=== PATIENT | male | born 1980 | race Caucasian/White ===

== ENCOUNTER 2018-06-01 20:51 | Emergency (ER) | payer OTHER ==
[~2018-06-01] VITALS: Ht 160 cm; Wt 61.2 kg
[2018-06-01] MEDS ORDERED: ASTAGRAF XL1 MG PO (21:00)
[2018-06-01] MEDS ORDERED: CARVEDILOL12.5 MG PO (21:00)
[2018-06-01] MEDS ORDERED: MYFORTIC180 MG PO (21:00)
[2018-06-01] MEDS ORDERED: MONUROL3 GM PER TUBE ×2 (21:01→21:27)
[2018-06-01 21:19] LABS: URINE BILIRUBIN NEGATIVE (Negative); URINE BLOOD 2+ (Negative); URINE CLARITY SL CLOUDY; URINE COLOR STRAW; URINE GLUCOSE-RANDOM NEGATIVE (Negative); URINE KETONES NEGATIVE (Negative); URINE PROTEIN 2+ (Negative); URINE UROBILINOGEN 0.2 E.U./dl (0.2-1.0)
[2018-06-01 21:20] LABS: URINE LEUKOCYTES-REFLEX 3+ (Negative); URINE NITRITE-REFLEX POSITIVE (Negative)
[2018-06-01 21:31] LABS: BACTERIA-REFLEX >30 Many /HPF (None Seen); CASTS None Seen /LPF (None Seen); CRYSTALS None Seen /LPF (None Seen); MUCUS 0-3 Light strn/LPF (None Seen); SQUAMOUS 0-3 Few /LPF (0-3); URINE WBC-REFLEX >25 Many /HPF (0-5); WBC CLUMPS Moderate (None Seen)
[2018-06-01 21:50] VITALS: BP 152/100
== END 2018-06-01 21:50 | disposition home or self-care (01) ==
LOC: M.ERS 20:51
PROVIDERS: Nurse Practitioner Family
DX: N39.0 Urinary tract infection, site not specified (principal); Z88.1 Allergy status to other antibiotic agents; Z88.2 Allergy status to sulfonamides

== ENCOUNTER 2019-01-08 21:56 | Emergency (ER) | payer OTHER ==
[~2019-01-08] VITALS: Ht 160 cm; Wt 61.2 kg
[~2019-01-08 21:56] MED LIST: ASTAGRAF XL1 MG PO; CARVEDILOL12.5 MG PO; MONUROL3 GM PER TUBE; MYFORTIC180 MG PO
[2019-01-08] MEDS ORDERED: METOLAZONE 2.52.5 M1 PO (22:12)
[2019-01-08] MEDS ORDERED: VITAMIN D31000 UNIT PO (22:13)
[2019-01-08 22:28] LABS: URINE BILIRUBIN NEGATIVE (Negative); URINE BLOOD 1+ (Negative); URINE CLARITY SL CLOUDY; URINE COLOR YELLOW; URINE GLUCOSE-RANDOM NEGATIVE (Negative); URINE KETONES NEGATIVE (Negative); URINE PROTEIN 1+ (Negative); URINE SPECIFIC GRAVITY 1.015 (1.005-1.030); URINE UROBILINOGEN 0.2 E.U./dl (0.2-1.0)
[2019-01-08 22:30] LABS: URINE LEUKOCYTES-REFLEX 3+ (Negative); URINE NITRITE-REFLEX POSITIVE (Negative)
[2019-01-08 22:36] LABS: BACTERIA-REFLEX >30 Many /HPF (None Seen); MUCUS None Seen strn/LPF (None Seen); SQUAMOUS 0-3 Few /LPF (0-3); URINE WBC-REFLEX >25 Many /HPF (0-5)
[2019-01-08 22:37] LABS: CASTS None Seen /LPF (None Seen); CRYSTALS None Seen /LPF (None Seen); URINE RBC 3-10 Few /HPF (0-2); WBC CLUMPS Few (None Seen)
[2019-01-08 22:48] LABS: INFLUENZA A ANTIGEN Negative (Negative); INFLUENZA B ANTIGEN Negative (Negative)
[2019-01-08] MEDS ORDERED: LEVAQUIN 500 M500 MG PO (22:56)
[2019-01-08 23:22] VITALS: BP 143/87
== END 2019-01-08 23:23 | disposition home or self-care (01) ==
LOC: M.ERS 21:56
PROVIDERS: Emergency Medicine
DX: N39.0 Urinary tract infection, site not specified (principal); J06.9 Acute upper respiratory infection, unspecified; Z88.1 Allergy status to other antibiotic agents; Z88.2 Allergy status to sulfonamides; Z94.0 Kidney transplant status

== ENCOUNTER 2019-09-29 17:31 | Emergency (ER) | payer OTHER ==
[~2019-09-29] VITALS: Ht 160 cm; Wt 61.2 kg
[~2019-09-29 17:31] MED LIST changes: +LEVAQUIN 500 M500 MG PO; +METOLAZONE 2.52.5 M1 PO; +VITAMIN D31000 UNIT PO
[2019-09-29] MEDS ORDERED: NATURE MADE (17:46)
[2019-09-29 18:04] LABS: URINE BILIRUBIN NEGATIVE (Negative); URINE BLOOD 2+ (Negative); URINE CLARITY CLOUDY; URINE COLOR YELLOW; URINE GLUCOSE-RANDOM NEGATIVE (Negative); URINE KETONES TRACE (Negative); URINE LEUKOCYTES-REFLEX 3+ (Negative); URINE NITRITE-REFLEX POSITIVE (Negative); URINE PROTEIN 2+ (Negative); URINE SPECIFIC GRAVITY 1.025 (1.005-1.030); URINE UROBILINOGEN 0.2 E.U./dl (0.2-1.0)
[2019-09-29 18:12] LABS: SQUAMOUS 0-3 Few /LPF (0-3); URINE WBC-REFLEX >25 Many /HPF (0-5); WBC CLUMPS Moderate (None Seen)
[2019-09-29 18:13] LABS: BACTERIA-REFLEX >30 Many /HPF (None Seen); URINE RBC 3-10 Few /HPF (0-2)
[2019-09-29 18:14] LABS: CASTS None Seen /LPF (None Seen); CRYSTALS None Seen /LPF (None Seen); MUCUS None Seen strn/LPF (None Seen)
[2019-09-29] MEDS ORDERED: LEVAQUIN 500 M500 M2 PO (18:30)
[2019-09-29 18:44] VITALS: BP 169/88
== END 2019-09-29 18:44 | disposition home or self-care (01) ==
LOC: M.ERS 17:31
PROVIDERS: Family Medicine
DX: N39.0 Urinary tract infection, site not specified (principal); J02.9 Acute pharyngitis, unspecified; Z88.1 Allergy status to other antibiotic agents; Z88.2 Allergy status to sulfonamides

== ENCOUNTER 2021-03-11 07:13 | Emergency (ER) | payer OTHER ==
[~2021-03-11] VITALS: Ht 160 cm; Wt 61.2 kg
[~2021-03-11 07:13] MED LIST changes: +LEVAQUIN 500 M500 M2 PO; +NATURE MADE
[2021-03-11 08:04] LABS: URINE BILIRUBIN NEGATIVE (Negative); URINE BLOOD 3+ (Negative); URINE CLARITY CLEAR; URINE COLOR YELLOW; URINE GLUCOSE-RANDOM NEGATIVE (Negative); URINE KETONES NEGATIVE (Negative); URINE LEUKOCYTES 1+ (Negative); URINE NITRITE NEGATIVE (Negative); URINE PROTEIN 2+ (Negative); URINE UROBILINOGEN 0.2 E.U./dl (0.2-1.0)
[2021-03-11 08:22] LABS: CASTS None Seen /LPF (None Seen); SQUAMOUS 0-3 Few /LPF (0-3)
[2021-03-11 08:23] LABS: BACTERIA >30 Many /HPF (None Seen); CRYSTALS None Seen /LPF (None Seen); URINE WBC >25 Many /HPF (0-5)
[2021-03-11] MEDS ORDERED: LEVAQUIN 500 M500 MG PO (09:26)
[2021-03-11 09:46] VITALS: BP 168/118
== END 2021-03-11 09:47 | disposition home or self-care (01) ==
LOC: M.ERS 07:13
PROVIDERS: Emergency Medicine
DX: N39.0 Urinary tract infection, site not specified (principal); Z20.822 Contact with and (suspected) exposure to COVID-19; Z87.442 Personal history of urinary calculi; Z90.49 Acquired absence of other specified parts of digestive tract; Z79.899 Other long term (current) drug therapy; Z88.1 Allergy status to other antibiotic agents; Z88.2 Allergy status to sulfonamides; Z88.8 Allergy status to other drugs, medicaments and biological substances